=== PATIENT | male | born 1980 | race Two or more races ===

== ENCOUNTER 2019-12-15 22:04 | Emergency (ER) | payer SELFPAY ==
[~2019-12-15] VITALS: Ht 170.2 cm; Wt 72.6 kg
--- NOTE | 2019-12-15 22:10 | NUR ---
Patient BIB with c/o of back pain after lifting a heavy stone while at work. Patient AAOx4. In no acute distress. No cardiovascular concern. No /GI concern.
--- NOTE | 2019-12-15 22:39 | NUR ---
AFTER TRIAGE PT STATED HE DIDF NOT WANT TO SEE THE DOCTOR AND LEFT FACILITY, AMBULATED W/O DIFF/TOOK ALL BELONGINGS.
== END 2019-12-15 22:39 | disposition left against medical advice (07) ==
LOC: ER 22:07
DX: M54.9 Dorsalgia, unspecified (principal)
CPT/HCPCS: A4663